=== PATIENT | female | born 1940 | race Caucasian/White ===

== ENCOUNTER 2017-05-23 16:50 | Emergency (ER) | payer MEDICARE ==
[2017-05-23] MEDS ORDERED: NS 0.9% 500 ML* 500 ML IV ONE (18:21)
[2017-05-23 18:40] LABS: ABS Basophils 0.1 10^3/ul (0-0.2); ABS Eosinophils 0.2 10^3/ul (0-0.6); ABS Lymphocytes 1.5 10^3/ul (1.0-4.8); ABS Monocytes 0.6 10^3/ul (0-0.8); ABS Neutrophils 5.5 10^3/ul (1.5-7.7); ABS Nucleated RBC 0 10^3/ul; Hematocrit 41 % (35-47); Hemoglobin 13.6 g/dl (12.0-16.0); Lymphocyte % 18.7 % (25-47); Mean Corpuscular HGB Conc 34 g/dl (31-36); Mean Corpuscular Hemoglobin 29 pg (27-31); Mean Corpuscular Volume 86 fL (80-97); Mean Platelet Volume 8.9 um3 (7.4-10.4); Nucleated Red Blood Cells % 0.1; Platelet Count 202 10^3/ul (150-450); Red Blood Count 4.74 10^6/ul (4.0-5.4); Red Cell Distribution Width 14 % (10.5-15); White Blood Count 7.8 10^3/ul (3.5-10.8)
[2017-05-23 18:50] LABS: INR 0.96 (0.77-1.02)
--- NOTE | 2017-05-23 19:02 | RAD ---
INDICATION: Chest pain COMPARISON: Chest x-ray November 01, 2009 TECHNIQUE: An AP portable view obtained at 1850 hours is submitted. FINDINGS: Bones/Soft Tissues: There are no acute bony findings. Cardiomediastinal: The cardiomediastinal silhouette is normal. Lungs: There are no infiltrates. Pleura: There are no pleural effusions. Other: None IMPRESSION: NO ACTIVE DISEASE.
[2017-05-23 19:10] LABS: EGFR Non-African American 76.3 (>60)
[2017-05-23 19:50] VITALS: BP 161/54
--- NOTE | 2017-05-23 19:51 | ED ---
Carlos Burrell Gabriel, scribed for Virgilio Jay MD on 05/23/17 at 1815 . Complex/Multi-Sys Presentation - HPI Summary HPI Summary: This patient is a 76 year old F presenting to [facility] accompanied by her daughter with multiple complaints. Patient reports confusion (described as feeling off), elevated BP, head pressure, pings in chest, feeling shaky, and equilibrium off. Pt is on anxiety medication. She has a stress test appointment. Pt states her HTN is very well controlled unless she is anxious, then it is elevated. - History Of Current Complaint Chief Complaint: EDAltMentalStatus Time Seen by Provider: 05/23/17 17:53 Hx Obtained From: Patient Onset/Duration: Still Present Timing: Constant Severity Currently: Mild Severity Initially: Mild Associated Signs And Symptoms: Positive: Other - confusion (described as feeling off), elevated BP, head pressure, pings in chest, feeling shaky, and equilibrium off. - Allergies/Home Medications Allergies/Adverse Reactions: Allergies Allergy/AdvReac Type Severity Reaction Status Date / Time aspirin Allergy Tinnitus Verified 05/23/17 17:52 sulfasalazine Allergy Tinnitus Verified 05/23/17 17:52 Home Medications: Home Medications ALPRAZolam TAB* [Xanax TAB*] 0.125 mg PO TID PRN 05/23/17 [History Confirmed 07/05] Aloe Vera Extract/Allantoin [[place] Aloe] 2 oz PO QAM 05/23/17 [History Confirmed 05/23/17] Aspirin 81 mg CHEW TAB* [Aspirin Low Dose TAB*] 81 mg PO QAM 05/23/17 [History Confirmed 05/23/17] Calcium Lactate 200 mg PO BID 05/23/17 [History Confirmed 05/23/17] Glucosamine/D3/Boswellia Whitney [Osteo Bi-Flex/5-Loxin Adv] 7 tab PO DAILY [History Confirmed 05/23/17] L.acidoph,Paracasei, B.lactis [Probiotic] 2 tab PO BID 05/23/17 [History Confirmed 05/23/17] Lisinopril TAB* [Prinivil TAB*] 5 mg PO QAM 05/23/17 [History Confirmed 05/23/17 ] Metoprolol Succinate [Metoprolol Succinate ER] 25 mg PO QAM 05/23/17 [History Confirmed 05/23/17] Armstrong-3 Fatty Acids (Nf) [Fish Oil (NF)] 1,000 mg PO QAM 05/23/17 [History Confirmed 05/23/17] Pravastatin (NF) [Pravachol (NF)] 20 mg PO QPM 05/23/17 [History Confirmed 05/23] Ubidecarenone [Coq10] 100 mg PO QAM 05/23/17 [History Confirmed 05/23/17] Vitamin B Complex CAP* [B Complex CAP*] 1 cap PO QAM 05/23/17 [History Confirmed 05/23/17] amLODIPine TAB* [Norvasc 5 mg TAB*] 10 mg PO DAILY 05/23/17 [History Confirmed 05/23/17] PMH/Surg Hx/FS Hx/Imm Hx Cardiovascular History: Reports: Hx Hypercholesterolemia, Hx Hypertension Denies: Hx Pacemaker/ICD Respiratory History: Reports: Hx Asthma - EXERCISE ASTHMA GI History: Reports: Other GI Disorders - ULCERATIVE COLITIS, RECENT DIARRHEA History: Denies: Hx Benign Prostatic Hyperplasia Comment Only: Other Problems/Disorders - KINK IN YOUR URETER. LAST MONTH UTI Musculoskeletal History: Reports: Other Musculoskeletal History - LUMBAR SURGERY , STENOSIS Denies: Hx Osteoporosis Sensory History: Reports: Hx Hearing Aid Neurological History: Reports: Other Neuro Impairments/Disorders - PAIN CLINIC PT Psychiatric History: Denies: Hx Panic Disorder - Cancer History Hx Chemotherapy: No Hx Radiation Therapy: No - Surgical History Surgery Procedure, Year, and Place: L4 SURGERY 3-4 YRS AGO(LIGAMENT SURGERY); APPENDECTOMY; TONSILECTOMY Infectious Disease History: No Infectious Disease History: Reports: Hx Shingles Denies: Traveled Outside the [place] in Last 30 Days - Family History Known Family History: Positive: Hypertension Negative: Seizure Disorder - Social History Lives: With Family Alcohol Use: Rare Alcohol Amount: 1 drink per week Substance Use Type: Reports: None Smoking Status (MU): Never Smoked Tobacco Review of Systems Constitutional: Other - equilibrium off Positive: Other - feeling shaky Positive: Chest Pain - pings in chest, , Other - elevated BP Neurological: Other - confusion (described as feeling off), Positive: Headache - head pressure All Other Systems Reviewed And Are Negative: Yes Physical Exam - Summary Physical Exam Summary: Appearance: Well appearing, no pain distress Skin: warm, dry, reflects adequate perfusion Head/face: normal Eyes: EOMI, MARIMAR ENT: normal, TM's are normal, cerumen visualized, no nasal congestion, no thyromegaly Neck: supple, non-tender Respiratory: CTA, breath sounds present Cardiovascular: RRR, pulses symmetrical. BP is 148/85, heart rate is 60. Grade 2 systolic murmur heard best over the aorta Abdomen: non-tender, soft Bowel Sounds: present Musculoskeletal: normal, strength/ROM intact, no LE edema Neuro: normal, sensory motor intact, A&Ox3 Triage Information Reviewed: Yes Vital Signs On Initial Exam: Initial Vitals Temp Pulse Resp BP Pulse Ox 98 F 68 16 191/65 100 05/23/17 16:53 05/23/17 16:53 05/23/17 16:53 05/23/17 16:53 05/23/17 16:53 Vital Signs Reviewed: Yes Diagnostics - Vital Signs Vital Signs Temp Pulse Resp BP Pulse Ox 05/23/17 17:46 69 96 05/23/17 17:45 166/69 05/23/17 16:53 98 F 68 16 191/65 100 - Laboratory Lab Results: Lab Results 05/23/17 05/23/17 05/23/17 Range/Units 18:30 18:30 18:30 WBC 7.8 (3.5-10.8) 10^3/ul RBC 4.74 (4.0-5.4) 10^6/ul Hgb 13.6 (12.0-16.0) g/dl Hct 41 (35-47) % MCV 86 (80-97) fL MCH 29 (27-31) pg MCHC 34 (31-36) g/dl RDW 14 (10.5-15) % Plt Count 202 (150-450) 10^3/ul MPV 8.9 (7.4-10.4) um3 Neut % (Auto) 70.7 (38-83) % Lymph % (Auto) 18.7 L (25-47) % [place] % (Auto) 7.8 H (0-7) % Eos % (Auto) 2.0 (0-6) % Baso % (Auto) 0.8 (0-2) % Absolute Neuts (auto) 5.5 (1.5-7.7) 10^3/ul Absolute Lymphs (auto) 1.5 (1.0-4.8) 10^3/ul Absolute Monos (auto) 0.6 (0-0.8) 10^3/ul Absolute Eos (auto) 0.2 (0-0.6) 10^3/ul Absolute Basos (auto) 0.1 (0-0.2) 10^3/ul Absolute Nucleated RBC 0 10^3/ul Nucleated RBC % 0.1 INR (Anticoag Therapy) (0.77-1.02) Sodium 141 (139-145) mmol/L Potassium 3.8 (3.5-5.0) mmol/L Chloride 107 (101-111) mmol/L Carbon Dioxide 25 (22-32) mmol/L Anion Gap 9 (2-11) mmol/L BUN 16 (6-24) mg/dL Creatinine 0.74 (0.51-0.95) mg/dL Est GFR ( Amer) 98.1 (>60) Est GFR (Non-Af Amer) 76.3 (>60) BUN/Creatinine Ratio 21.6 H (8-20) Glucose 96 (70-100) mg/dL Lactic Acid (0.5-2.0) mmol/L Calcium 9.3 (8.6-10.3) mg/dL Total Bilirubin 0.30 (0.2-1.0) mg/dL AST 16 (13-39) U/L ALT 16 (7-52) U/L Alkaline Phosphatase 56 (34-104) U/L Myoglobin 23.8 (14.3-65.8) ng/mL Troponin I 0.01 (<0.04) ng/mL B-Natriuretic Peptide 116 H ( - 100) pg/mL Total Protein 6.4 (6.4-8.9) g/dL Albumin 4.1 (3.2-5.2) g/dL Globulin 2.3 (2-4) g/dL Albumin/Globulin Ratio 1.8 (1-3) TSH 1.33 (0.34-5.60) mcIU/mL Thyroxine (T4) 8.43 (6.09-12.23) mcg/mL 05/23/17 05/23/17 Range/Units 18:30 18:30 WBC (3.5-10.8) 10^3/ul RBC (4.0-5.4) 10^6/ul Hgb (12.0-16.0) g/dl Hct (35-47) % MCV (80-97) fL MCH (27-31) pg MCHC (31-36) g/dl RDW (10.5-15) % Plt Count (150-450) 10^3/ul MPV (7.4-10.4) um3 Neut % (Auto) (38-83) % Lymph % (Auto) (25-47) % [place] % (Auto) (0-7) % Eos % (Auto) (0-6) % Baso % (Auto) (0-2) % Absolute Neuts (auto) (1.5-7.7) 10^3/ul Absolute Lymphs (auto) (1.0-4.8) 10^3/ul Absolute Monos (auto) (0-0.8) 10^3/ul Absolute Eos (auto) (0-0.6) 10^3/ul Absolute Basos (auto) (0-0.2) 10^3/ul Absolute Nucleated RBC 10^3/ul Nucleated RBC % INR (Anticoag Therapy) 0.96 (0.77-1.02) Sodium (139-145) mmol/L Potassium (3.5-5.0) mmol/L Chloride (101-111) mmol/L Carbon Dioxide (22-32) mmol/L Anion Gap (2-11) mmol/L BUN (6-24) mg/dL Creatinine (0.51-0.95) mg/dL Est GFR ( Amer) (>60) Est GFR (Non-Af Amer) (>60) BUN/Creatinine Ratio (8-20) Glucose (70-100) mg/dL Lactic Acid 0.7 (0.5-2.0) mmol/L Calcium (8.6-10.3) mg/dL Total Bilirubin (0.2-1.0) mg/dL AST (13-39) U/L ALT (7-52) U/L Alkaline Phosphatase (34-104) U/L Myoglobin (14.3-65.8) ng/mL Troponin I (<0.04) ng/mL B-Natriuretic Peptide ( - 100) pg/mL Total Protein (6.4-8.9) g/dL Albumin (3.2-5.2) g/dL Globulin (2-4) g/dL Albumin/Globulin Ratio (1-3) TSH (0.34-5.60) mcIU/mL Thyroxine (T4) (6.09-12.23) mcg/mL Result Diagrams: 05/23/17 18:30 05/23/17 18:30 Lab Statement: Any lab studies that have been ordered have been reviewed, and results considered in the medical decision making process. - Radiology CXR Radiology Interpretation Completed By: Radiologist - no active disease. Dr. Jay has reviewed this report - EKG 16:54 Cardiac Rate: NL EKG Rhythm: Sinus Rhythm - at [address] Segment: Normal EKG Interpretation: normal axis, normal intervals, Re-Evaluation - Re-Evaluation First Eval Re-Evaluation Time: 19:25 Change: Improved - sx resolved here. Comment: I discussed test results and discharge with the pt. Complex Multi-Symp Course/Dx Course Of Treatment: pt with a lot of anxiety over terminal carman hospitalization of her (who now has an LVAD). She has been checking her BP recurrently, and it tends to go up and up the more she checks it (and gets anxious over it). She had occassional shart shooting pain lasting 1 second. Labs, ekg and trop all neg. BPs not grossly elevated here. Her wheel aligner was in the ED and confirms that he will follow her up in office. He also agrees that she should not be checking her BP so frequently. Pt calmed, no changes to her medication regimen. D/C in good condition. - Diagnoses Differential Diagnoses/HQI/PQRI: Cardiac Ischemia, Metabolic Abnormality, Other - anxiety Provider Diagnoses: Atypical chest pain, Generalized anxiety disorder - Physician Notifications Discussed Care Of Patient With: Jaya Hernandez Time Discussed With Above Provider: 18:26 Instructed by Provider To: Other - We discussed patient care with Dr. Hernandez and they recommended discharging the patient . Discharge - Sign-Out/Discharge Documenting (check all that apply): Discharge - Discharge Plan Condition: Good Disposition: HOME Patient Education Materials: Chest Pain (ED) Referrals: Jaya Hernandez MD [Medical Doctor] - Gloria Eugene MD [Primary Care Provider] - Additional Instructions: Call tomorrow to follow up with Dr. Hernandez. Get plenty of sleep. Avoid caffeine, alcohol. Stay well hydrated. Return if worse, chest pressures -- especially those associated with exertion, trouble breathing, or other concerns. The documentation as recorded by the Carlos pulido Gabriel accurately reflects the service I personally performed and the decisions made by me, Virgilio Jay MD.
== END 2017-05-23 19:49 | disposition home or self-care (01) ==
LOC: ED 16:50
DX: R07.89 Other chest pain (principal); F41.1 Generalized anxiety disorder; J45.909 Unspecified asthma, uncomplicated; I10 Essential (primary) hypertension; E78.00 Pure hypercholesterolemia, unspecified
CPT/HCPCS: 36415; 71045; 80053; 83605; 83874; 83880; 84436; 84443; 84484; 85025; 85610; 93005; 96360; 99283